=== PATIENT | female | born 1990 | race Caucasian/White ===

== ENCOUNTER 2022-08-23 13:01 | Emergency (ER) | payer OTHER, SELFPAY ==
[2022-08-23 13:17] VITALS: BP 133/92; PULSE 89; RESP 20; TEMP 37.1; O2SAT 99; BMI 25.7
== END 2022-08-23 13:30 | disposition left against medical advice (07) ==
PROVIDERS: Emergency Provider Emergency Medicine
DX: Z53.21 Procedure and treatment not carried out due to patient leaving prior to being seen by health care provider (principal)

== ENCOUNTER 2022-12-06 21:39 | Emergency (ER) | payer SELFPAY ==
[2022-12-06 21:48] VITALS: BP 129/73; PULSE 61; RESP 18; TEMP 37; O2SAT 98; BMI 23.0
--- NOTE | 2022-12-06 22:15 | ED_ITS ---
HPI - General Adult General Stated complaint: Dental Pain Time Seen by Provider: 12/06/22 22:02 Mode of arrival: walk-in Limitations: no limitations History of Present Illness HPI narrative: presents complaining of a burning pain and points to her gingiva. present for one day. no facial swelling. No fever Related Data Allergies Allergy/AdvReac Type Severity Reaction Status Date / Time No Known Drug Allergies Allergy Verified 08/23/22 13:17 Review of Systems ROS Status of ROS 10 or more systems reviewed and unremarkable except as noted in history and below PFSH PFS Social History Smoking status: Current some day smoker Exam Constitutional Vital Signs, click to edit/add: Last Vital Signs Temp 98.6 F 12/06/22 21:48 Pulse 61 12/06/22 21:48 Resp 18 12/06/22 21:48 BP 129/73 12/06/22 21:48 Pulse Ox 98 12/06/22 21:48 O2 Del Method Room Air 12/06/22 21:48 Common normals: no apparent distress, average body habitus, oriented x3, no limitations, healthy appearing, alert and well nourished [facility] Other: no obvious dental caries. tenderness of gingiva Eye Common normals: EOMs intact bilaterally and conjunctivae normal Respiratory Common normals: normal respiratory effort, no retractions and no use of a ccessory muscles Cardio Common normals: regular rate and regular rhythm Extremity Common normals: normal to inspection, full ROM and no joint enlargement Neuro Common normals: oriented x3, CN's II-XII intact bilaterally, moves all extremities and no sensory deficits noted Psych Appearance: grossly normal Course Vital Signs Vital signs: Vital Signs Temperature 98.6 F 12/06/22 21:48 Pulse Rate 61 12/06/22 21:48 Respiratory Rate 18 12/06/22 21:48 Blood Pressure 129/73 12/06/22 21:48 Pulse Oximetry 98 12/06/22 21:48 Oxygen Delivery Method Room Air 12/06/22 21:48 Temperature 98.6 F 12/06/22 21:48 Pulse Rate 61 12/06/22 21:48 Respiratory Rate 18 12/06/22 21:48 Blood Pressure 129/73 12/06/22 21:48 Pulse Oximetry 98 12/06/22 21:48 Oxygen Delivery Method Room Air 12/06/22 21:48 Medical Decision Making MDM Narrative Medical decision making narrative: presents with dental pain and points to gingiva. No obvious dental caries. Gingiva tender but no obvious inflammation. patient informed that is is unclear what is causing her pain. No obvious abscess or even caries. will treat for possible gingivitis and recommend she follow up with her dentist Discharge Plan Discharge Clinical Impression: Gingivitis Patient Disposition: Home, Self-Care Instructions: Gingivitis (ED) Additional Instructions: follow up with your dentist this week Stand Alone Forms: Portal Instructions Referrals: Physician,Non-Staff, MD [Primary Care Provider] - 1 week
--- NOTE | 2022-12-06 22:31 | PC.NURSE ---
Pt presents to ER for mouth pain Pt states she was at work today when she began having pain to her lower jaw pt does not have a history of dental problems Pt states there are white lumps under the gum, noticed on examination Pt believes she has gingivitis
[2022-12-06] MEDS: DOXYCYCLINE MONOHYDRATE 100 MG CAPSULE PO (22:40)
== END 2022-12-06 22:51 | disposition home or self-care (01) ==
PROVIDERS: Emergency Provider Internal Medicine
DX: K05.10 Chronic gingivitis, plaque induced (principal); F17.210 Nicotine dependence, cigarettes, uncomplicated
CPT/HCPCS: 99283

== ENCOUNTER 2023-02-06 02:47 | Emergency (ER) | payer OTHER, SELFPAY ==
[2023-02-06 02:53] VITALS: BP 134/88; PULSE 67; RESP 18; TEMP 36.7; O2SAT 100; BMI 25.7
--- NOTE | 2023-02-06 03:12 | ED.GENADUL1 ---
HPI - General Adult General Chief complaint: Skin/Abscess/Foreign Body Stated complaint: SORES INSIDE MOUTH, PAIN Time Seen by Provider: 02/06/23 03:02 History of Present Illness HPI narrative: presents complaining of a sore mouth. started about 3 days ago. Similar lesions in the past x2. Has children at home who do not have any illness at this time. Related Data Allergies Allergy/AdvReac Type Severity Reaction Status Date / Time No Known Drug Allergies Allergy Verified 02/06/23 02:56 Review of Systems ROS Status of ROS 10 or more systems reviewed and unremarkable except as noted in history and below [facility] Social History Smoking status: Current every day smoker Exam Constitutional Vital Signs, click to edit/add: Last Vital Signs Temp 98.0 F 02/06/23 02:53 Pulse 67 02/06/23 02:53 Resp 18 02/06/23 02:53 BP 134/88 02/06/23 02:53 Pulse Ox 100 02/06/23 02:53 O2 Del Method Room Air 02/06/23 02:53 Common normals: no apparent distress, average body habitus, oriented x3, no limitations, healthy appearing, alert and well nourished [facility] Common normals: normocephalic and head/scalp atraumatic Other: very small 1mm ulcer lesions on her buccal mucosa. Eye Common normals: PERRL, EOMs intact bilaterally and conjunctivae normal Neck & C-Spine Other: left anterior cervical node enlarged Respiratory Common normals: normal respiratory effort, no retractions, no use of accessory muscles and clear to auscultation bilaterally Cardio Common normals: regular rate, regular rhythm, S1 normal heart sound and S2 normal heart sound Extremity Common normals: normal to inspection and full ROM Neuro Common normals: oriented x3, CN's II-XII intact bilaterally, moves all extremities, no focal motor deficits and no sensory deficits noted Psych Appearance: grossly normal Course Vital Signs Vital signs: Vital Signs Temperature 98.0 F 02/06/23 02:53 Pulse Rate 67 02/06/23 02:53 Respiratory Rate 18 02/06/23 02:53 Blood Pressure 134/88 02/06/23 02:53 Pulse Oximetry 100 02/06/23 02:53 Oxygen Delivery Method Room Air 02/06/23 02:53 Temperature 98.0 F 02/06/23 02:53 Pulse Rate 67 02/06/23 02:53 Respiratory Rate 18 02/06/23 02:53 Blood Pressure 134/88 02/06/23 02:53 Pulse Oximetry 100 02/06/23 02:53 Oxygen Delivery Method Room Air 02/06/23 02:53 Medical Decision Making MDM Narrative Medical decision making narrative: patient presents with minute ulcers of her buccal mucosa that are very painful. No surrounding swelling. Oral pharynx clear. One isolated enlarged node. Patient informed of the working diagnosis of apthous ulcers and that the lesions will eventually resolve and are not contagious Discharge Plan Discharge Chief Complaint: Skin/Abscess/Foreign Body Clinical Impression: Aphthous stomatitis Patient Disposition: Home, Self-Care Instructions: Oral Mucositis (ED), Gingivostomatitis (ED) Stand Alone Forms: Portal Instructions Referrals: Physician,Non-Staff, MD [Primary Care Provider] - 1 week
== END 2023-02-06 03:25 | disposition home or self-care (01) ==
PROVIDERS: Emergency Provider Internal Medicine
DX: K12.0 Recurrent oral aphthae (principal); F17.210 Nicotine dependence, cigarettes, uncomplicated
CPT/HCPCS: 99282

== ENCOUNTER 2023-07-13 15:16 | Outpatient (OUT) | payer OTHER, SELFPAY ==
--- NOTE | 2023-07-13 15:19 | XR_ITS ---
[facility] [place] [id number] Patient Name: ZACHARY RESTREPO MRN: [id number] date: 1990 Sex: F Assigned Patient Location: [facility] Current Patient Location: [facility] Accession/Order Number: [id number] Exam Date: 07/13/2023 15:25 Report Date: 07/13/2023 16:26 At the request of: VA CHANG Procedure: XR lumbar spine min 4V EXAMINATION: XR lumbar spine min 4V HISTORY: low back pain, back injury COMPARISON: No relevant comparison available. FINDINGS: BONES: Mild rotatory levocurvature. No significant spondylosis, scoliosis, fracture, or visible bony lesion. DISC SPACES: Normal. No significant disc height narrowing, subluxation, or endplate abnormality. PARASPINOUS: Negative. No paraspinous abnormality is seen. OTHER: Moderate stool in the colon. XR/XR lumbar spine min 4V IMPRESSION: Mild rotatory levocurvature Moderate stool in colon Electronically authenticated by: GARTH MARES Date: 07/13/2023 16:26
== END 2023-07-13 15:17 | disposition home or self-care (01) ==
LOC: RAD 15:16
PROVIDERS: Visit Provider Nurse Practitioner
DX: M54.50 Low back pain, unspecified (principal)
CPT/HCPCS: 72110